=== PATIENT | male | born 1990 | race Caucasian/White ===

== ENCOUNTER 2020-01-28 12:27 | Emergency (ER) | payer MEDICAID, SELFPAY ==
[~2020-01-28] VITALS: Ht 185.4 cm; Wt 83.9 kg
[2020-01-28 12:27] VITALS: BP_SYST 142
[2020-01-28 12:52] VITALS: BP_SYST 138
== END 2020-01-28 12:54 | disposition home or self-care (01) ==
LOC: SED 12:27
DX: J02.9 Acute pharyngitis, unspecified (principal); R06.02 Shortness of breath; J34.89 Other specified disorders of nose and nasal sinuses; Z20.828 Contact with and (suspected) exposure to other viral communicable diseases
CPT/HCPCS: 99283; C9803; U0003